=== PATIENT | female | born 1980 | race Caucasian/White ===

== ENCOUNTER 2017-07-30 11:19 | Day surgery (SDC) | payer OTHER, SELFPAY ==
[~2017-07-30] VITALS: Ht 154.9 cm; Wt 52.6 kg
[~2017-07-30 11:19] MED LIST: BUPIVACAINE HCL 0.5% 10 ML VIAL As Ordered ONE; CLON1TAB PO; LIDOCAINE 1% MDV 20ML VIAL As Ordered ONE; XANA0.5T PO; dexameTHASONE 4 MG/ML 1ML VIAL (J1100) As Ordered ONE
[2017-07-30] MEDS ORDERED: LR 1,000 ML IV ONE (11:30)
[2017-07-30] MEDS ORDERED: PROPOFOL 200 MG/20 ML VIAL As Ordered ONE ×5 (11:57→14:54)
[2017-07-30] MEDS ORDERED: LIDOCAINE 2% INJ 100 MG/5 ML SDV (FOR ANES.) As Ordered ONE (11:57)
[2017-07-30] MEDS ORDERED: fentaNYL 100 MCG/2 ML INJECTION (J3010) As Ordered ONE (11:57)
[2017-07-30] MEDS ORDERED: ONDANSETRON 4MG/2ML VIAL (J2405) As Ordered ONE (11:57)
[2017-07-30] MEDS ORDERED: MIDAZOLAM INJ 2 MG/2 ML VIAL (J2250) As Ordered ONE (11:58)
[2017-07-30 16:00] VITALS: BP 108/62
--- NOTE | 2017-07-30 16:54 | RO ---
DATE OF PROCEDURE: 07/30/2017 PREPROCEDURE DIAGNOSES: Right foot bunion, hallux valgus, and Tailor's bunion. POSTPROCEDURE DIAGNOSES: Right foot bunion, hallux valgus, and Tailor's bunion. OPERATIVE PROCEDURE: Right foot bunionectomy with first metatarsal osteotomy, Mirza osteotomy and fifth metatarsal osteotomy, plus Tailor's bunionectomy. SURGEON: Wai Jacobson DPM CULLET TRUCKER: None. ANESTHESIA: Monitored anesthesia care, preoperative injection of 20 mL of 1:1 mixture of 1% lidocaine plain and 0.5% Marcaine plain. ESTIMATED BLOOD LOSS: Minimal. MATERIALS: Arthrex 3.5 headless screw in first metatarsal, Arthrex 2.5 headless screw times three, one in the first metatarsal, one in the proximal phalanx of the hallux and one in the fifth metatarsal, #3-0 and #4-0 Vicryl, #4-0 nylon. INJECTABLES: 1 mL of Decadron, and 3 mL lidocaine. COMPLICATIONS: None. CONDITION: Stable. INDICATIONS: Norma Garvin is a 37-year-old female who presents to [facility] with complaints of painful bunion and Tailor's bunion. She presents today for surgical correction. The patient's side and site were identified and marked in the preoperative holding area. Consent was reviewed and obtained. All risks, complications, and alternatives to the procedure were explained to the patient in detail. All questions were answered. DESCRIPTION OF PROCEDURE: The patient was brought to the operating room and placed on the operative room table in the supine position, monitored anesthesia care was delivered by the anesthesia team. Preoperative injection of 20 mL of 1:1 mixture of 1% lidocaine plain and 0.5% Marcaine plain were injected to the right foot. Right foot was prepped and draped in the normal sterile fashion. Tourniquet was applied to right ankle and inflated to 205 mmHg. The patient received Ancef preoperatively. Attention was first paid to the bunion. A dorsal medial incision was drawn and carried through with a #15 blade. Dissection was carried down until the first metatarsal phalangeal joint capsule was identified. Bovie was used to maintain hemostasis. T-capsulotomy was performed exposing the metatarsal head. Following this, a lateral release was performed releasing the adductor tendon, lateral capsule, sesamoidal ligaments. McGlamry elevated was used to free the plantar structures. Following this, the medial eminence was resected by sagittal saw and an osteotomy was performed of the metatarsal head and shaft transposing it laterally. This was fixated with an Arthrex 3.5 headless screw and 2.5 headless screw. Next, attention was paid to the proximal phalanx. A wedge was removed from the medial aspect of the proximal phalanx, effectively placing the hallux in a more medial position. This was fixated under C-Arm guidance with a 2.5 headless screw. Following the remaining bone ledge from the metatarsal was removed with sagittal saw, and smooth and rasped. The site was irrigated with normal saline. A wedge of the medial capsule was removed from the first metatarsal phalangeal capsule and capsular repair was performed with #3-0 Vicryl, subcutaneous was closed with #4-0 Vicryl, and skin closed with #4-0 nylon. Next, attention was paid to the fifth metatarsal. A dorsal lateral incision was drawn and carried through with a #15 blade. Dissection was carried down until the fifth metatarsal phalangeal joint capsule was identified. A linear capsulotomy was performed exposing the metatarsal head. McGlamry elevator was used to free the plantar structures. An oblique osteotomy was preformed of the metatarsal head and neck. The metatarsal head was transposed proximally and medially. This was affixed in place with an Arthrex 2.5 headless screw. Remaining bone ledge and the lateral eminence were resected with sagittal saw and smoothed with a rasp. The site was irrigated with normal saline. Capsular repair was performed with #4-0 Vicryl and subcutaneous was closed with #4-0 Vicryl, skin closed with #4-0 nylon. 1 mL of Decadron was injected in the postoperative site. Sterile dressings were applied, tourniquet was deflated. The patient was brought to post anesthesia care unit (PACU) vital signs stable, neurovascular status intact. She will be partial weightbearing to the right foot. She will followup in the office in 2 days.
== END 2017-07-30 16:05 | disposition home or self-care (01) ==
LOC: M SDC 11:19
PROVIDERS: ATTEND Podiatrist Foot & Ankle Surgery
DX: M20.11 Hallux valgus (acquired), right foot (principal); M21.621 Bunionette of right foot; M21.611 Bunion of right foot; E11.9 Type 2 diabetes mellitus without complications; D64.9 Anemia, unspecified; F41.9 Anxiety disorder, unspecified; K25.9 Gastric ulcer, unspecified as acute or chronic, without hemorrhage or perforation; T88.59XD Other complications of anesthesia, subsequent encounter; M51.9 Unspecified thoracic, thoracolumbar and lumbosacral intervertebral disc disorder; G43.909 Migraine, unspecified, not intractable, without status migrainosus; Z79.899 Other long term (current) drug therapy; Z98.84 Bariatric surgery status; Z72.0 Tobacco use
CPT/HCPCS: 28110; 28299; 73630; 88300; 97116; C1713; J0690; J1100; J2250; J2405; J3010

== ENCOUNTER 2017-11-19 09:39 | Day surgery (SDC) | payer OTHER ==
[2017-11-19] MEDS ORDERED: LR 1,000 ML IV ×2 (10:00→13:30)
[2017-11-19] MEDS ORDERED: fentaNYL 100 MCG/2 ML INJECTION (J3010) As Ordered (10:18)
[2017-11-19] MEDS ORDERED: MIDAZOLAM INJ 2 MG/2 ML VIAL (J2250) As Ordered (10:18)
[2017-11-19] MEDS: LIDOCAINE 1% MDV 20ML VIAL As Ordered (11:25)
[2017-11-19] MEDS: BUPIVACAINE HCL 0.5% 10 ML VIAL As Ordered (11:25)
[2017-11-19] MEDS ORDERED: PROPOFOL 200 MG/20 ML VIAL As Ordered ×4 (11:35→11:49)
[2017-11-19] MEDS ORDERED: MIDAZOLAM INJ 5 MG/ML VIAL (J2250) As Ordered (11:46)
[2017-11-19] MEDS ORDERED: ePHEDrine INJ 50 MG/ML VIAL As Ordered (11:55)
[2017-11-19] MEDS: dexameTHASONE 4 MG/ML 1ML VIAL (J1100) As Ordered (12:45)
[2017-11-19] MEDS ORDERED: METOCLOPRAMIDE INJ 10MG/2ML VIAL (J2765) IV (13:30)
[2017-11-19] MEDS ORDERED: ONDANSETRON 4MG/2ML VIAL (J2405) IV (13:30)
[2017-11-19] MEDS: PERCOCET 5MG/325MG TAB PO (13:39)
[2017-11-19 14:01] LABS: TROPONIN I < 0.02 NG/ML (< 0.10)
== END 2017-11-19 14:20 | disposition home or self-care (01) ==
LOC: M SDC 09:39
DX: M20.12 Hallux valgus (acquired), left foot (principal); F41.9 Anxiety disorder, unspecified; G43.909 Migraine, unspecified, not intractable, without status migrainosus; Z79.899 Other long term (current) drug therapy; Z90.710 Acquired absence of both cervix and uterus; Z98.84 Bariatric surgery status; Z86.2 Personal history of diseases of the blood and blood-forming organs and certain disorders involving the immune mechanism; Z72.0 Tobacco use
CPT/HCPCS: 28298